=== PATIENT | male | born 1960 | race Caucasian/White ===

== ENCOUNTER 2017-12-24 00:32 | Emergency (ER) | END 2017-12-24 09:30 | disposition home or self-care (01) ==

== ENCOUNTER 2017-12-25 05:15 | Emergency (ER) | END 2017-12-25 13:00 | disposition home or self-care (01) ==

== ENCOUNTER 2019-01-01 21:22 | Emergency (ER) | payer OTHER ==
[~2019-01-01] VITALS: Ht 177.8 cm; Wt 92.7 kg
[~2019-01-01 21:22] MED LIST: AMOX500C2 PO
[2019-01-01 21:25] VITALS: Ht 177.8 cm; Wt 92.7 kg
[2019-01-02] MEDS ORDERED: SOD CHLORIDE 0.9% 1,000 ML IV ONE ×3 (00:30→06:30)
[2019-01-02] MEDS ORDERED: IOHEXOL 100 ML ONE (06:32)
[2019-01-02] MEDS ORDERED: SOD CHLORIDE 0.9% 100 ML ONE (06:32)
[2019-01-02 17:33] VITALS: BP 156/95; PULSE 111; RESP 24
== END 2019-01-02 18:04 | disposition home or self-care (01) ==
LOC: E/R 21:22
DX: R10.84 Generalized abdominal pain (principal); R00.0 Tachycardia, unspecified; Z85.841 Personal history of malignant neoplasm of brain
CPT/HCPCS: 36415; 71045; 71275; 74177; 80053; 81001; 82140; 83690; 83880; 84436; 84479; 84484; 85025; 93005; J7030; Q9967; Z7502; Z7610